=== PATIENT | female | born 1995 | race Caucasian/White ===

== ENCOUNTER 2022-05-03 01:33 | Day surgery (SDC) | payer OTHER, SELFPAY ==
[2022-05-03 09:50] VITALS: BP 146/86; PULSE 91; RESP 16; TEMP 36.3; O2SAT 100
[2022-05-03] MEDS: LACTATED RINGERS 1,000 ML 150 ML IV CONT (09:51)
--- NOTE | 2022-05-03 09:58 | WPDANESEPPF ---
Anes - Initial Pre Proc Eval Procedure: Operation Date: 05/03/22 11:00 Proposed Procedures p Esophagogastroduodenoscopy & Colonoscopy - Coy Alicia MD Date/Time: 05/03/22 09:58 Surgeon: Coy Alicia MD Pre Op Diagnosis: diarrhea, Abdominal pain Patient Data Age: 27 Gender: F Height: 1.7 m Weight: 76.3 kg Last Vital Signs Temp 97.4 F L 05/03/22 09:50 Pulse 91 05/03/22 09:50 Resp 16 05/03/22 09:50 BP 146/86 H 05/03/22 09:50 Pulse Ox 100 05/03/22 09:50 O2 Del Method Room Air 05/03/22 09:50 Allergies Allergy/AdvReac Type Severity Reaction Status Date / Time No Known Allergies Allergy Mild Verified 05/03/22 09:48 Home Medications Medication Instructions Recorded Confirmed Type estradiol-dienogest 3 mg/2 mg-2 1 tablet PO DAILY #84 tabs 03/22/22 05/03/22 Rx mg/2 mg-3 mg/1 mg tablet (N[place]zia) levothyroxine 50 mcg tablet 50 mcg PO DAILY #90 tabs 03/22/22 05/03/22 Rx Adult One Daily Multivitamin 1 tablet PO DAILY 04/18/22 05/03/22 History cholecalciferol (vitamin D3) 25 25 mcg PO DAILY 04/18/22 05/03/22 History mcg (1,000 unit) tablet (Vitamin D3) Patient hx anesthesia problems: none Family hx anesthesia problems: none Results Review: All pre-operative results and documents have been reviewed as part of the pre-operative evaluation. [facility] Family History Family History Mother Family history of thyroid disease Family history of migraine headaches Grandparent Diabetes mellitus Family history of blood dyscrasia Malignant neoplasm of prostate Family history of coronary artery disease Family history of throat cancer, Onset Age: 73 Father Family history of blood dyscrasia Social History Social History Smoking status: Never smoker Second hand tobacco smoke exposure: No Alcohol intake: current Drinks per week: 4 Alcohol use details: beer Substance use: never Substance use type: does not use Living arrangements: with family Gender identity (if verbalized by the patient): Female Spiritual care concerns: No Agree to blood products: Yes Anes - Eval Final PreProcedure Day of Procedure 05/03/22 09:58 Patient weight: normal Heart: regular rate and rhythm Lungs: clear to auscultation Airway: Mallampati scale class II Neurological: alert and oriented Last oral intake: >/= 8 hours ASA classification: II Emergent: no Anesthetic plan: proceed Anesthesia type and monitoring: general GIVS and standard monitoring Results Review: All pre-operative results and documents have been reviewed as part of the pre-operative evaluation. Informed Consent: The patient's anesthetic plan and its attendant risks and benefits were discussed with the patient/family/POA. Questions were solicited and answers provided to the satisfaction of the patient/family/POA.
--- NOTE | 2022-05-03 10:14 | PM.HPGS ---
History of Present Illness History of Present Illness Consent: Risks, benefits, and alternatives have been discussed and questions answered. Patient agrees to proceed with procedure. Chief complaint: diarrhea, Abdominal pain Narrative: Pattie Rivera is a 27 year old female with postprandial pain and bloating, also soft stools. Never had scopes, blood work unremarkable including negative serology for celiac. Omeprazole did not make a difference. Review of Systems Constitutional: Constitutional: Denies headache(s) and Denies weakness Eyes: Eyes: Denies blurry vision ENT: Reports Normal hearing present, Denies headache(s) and Denies neck pain Cardiovascular: Cardiovascular: Denies chest pain and Denies dyspnea Respiratory: Respiratory: Denies dyspnea Gastrointestinal: Gastrointestinal: Reports no additional gastrointestinal complaints Genitourinary: Genitourinary: Denies dysuria Musculoskeletal: Musculoskeletal: Denies neck pain Integumentary/Breasts: Skin/Breast: Denies dry skin Neurologic: Reports Normal hearing present, Denies headache(s) and Denies weakness Psychiatric: Psychiatric: Denies anxiety Endocrine: Endocrine: Denies change in body appearance Hematologic/Lymphatic: Hematologic/Lymphatic: Denies easy bleeding Allergic/Immunologic: Allergic/Immunologic: Denies urticaria PMFSH Past Medical History Medical History (Updated 05/03/22 @ 10:16 by Coy Alicia MD) Bloating Family History Family History Mother Family history of thyroid disease Family history of migraine headaches Grandparent Diabetes mellitus Family history of blood dyscrasia Malignant neoplasm of prostate Family history of coronary artery disease Family history of throat cancer, Onset Age: 73 Father Family history of blood dyscrasia Social History Social History Smoking status: Never smoker Second hand tobacco smoke exposure: No Alcohol intake: current Drinks per week: 4 Alcohol use details: beer Substance use: never Substance use type: does not use Living arrangements: with family Gender identity (if verbalized by the patient): Female Spiritual care concerns: No Agree to blood products: Yes Meds Home Medications and Allergies Home Medications Medication Instructions Recorded Confirmed Type estradiol-dienogest 3 mg/2 mg-2 1 tablet PO DAILY #84 tabs 03/22/22 05/03/22 Rx mg/2 mg-3 mg/1 mg tablet (N[place]zia) levothyroxine 50 mcg tablet 50 mcg PO DAILY #90 tabs 03/22/22 05/03/22 Rx Adult One Daily Multivitamin 1 tablet PO DAILY 04/18/22 05/03/22 History cholecalciferol (vitamin D3) 25 25 mcg PO DAILY 04/18/22 05/03/22 History mcg (1,000 unit) tablet (Vitamin D3) Allergies Allergy/AdvReac Type Severity Reaction Status Date / Time No Known Allergies Allergy Mild Verified 05/03/22 09:48 Vital Signs Vital Signs - 24 hr 05/03/22 09:50 Temperature 97.4 F L Pulse Rate 91 Respiratory Rate 16 Blood Pressure 146/86 H Pulse Oximetry 100 Oxygen Delivery Room Air Exam Const: General: comfortable and no acute distress HENMT: Face/Nose/Sinus: Normal nares present Eyes: General: appearance normal, both eyes and all related structures Neck: Neck: no JVD Resp: Auscultation: clear to auscultation bilaterally Cardio: Rate: regular rate Rhythm: regular rhythm GI: Inspection: non-distended GI Palp: Yes Soft to palpation Skin: General skin exam: normal color Neuro: General: gait normal Speech: normal speech Extrem: General: normal to inspection Psych: Mental Status: mental status grossly normal Assessment and Plan Assessment and plan (1) Abdominal pain: Code(s): R10.9 - Unspecified abdominal pain Status: Acute Assessment and Plan: egd and colonoscopy- check if pud, ibd, etc probably functio
--- NOTE | 2022-05-03 10:32 | SUR.OPER ---
EGD ENDED 1026, COLONOSCOPY STARTED 1031
[2022-05-03 10:47] VITALS: BP 97/48; PULSE 72; RESP 20; O2SAT 100
[2022-05-03 10:57] VITALS: BP 108/67; PULSE 69; RESP 20; O2SAT 100
[2022-05-03 11:07] VITALS: BP 120/80; PULSE 64; RESP 20; O2SAT 100
== END 2022-05-03 11:20 | disposition home or self-care (01) ==
PROVIDERS: PCP Family Medicine; Visit Provider Internal Medicine Gastroenterology
PROC: 0DJ08ZZ Inspection of Upper Intestinal Tract, Via Natural or Artificial Opening Endoscopic (ICD-10-PCS; CPT 43235; principal; 2022-05-03 11:00)
DX: R14.0 Abdominal distension (gaseous) (principal); R10.84 Generalized abdominal pain; K29.50 Unspecified chronic gastritis without bleeding; R19.7 Diarrhea, unspecified; E03.9 Hypothyroidism, unspecified
CPT/HCPCS: 45378; 43239; 88305; J2001; J2370; J2704; J7120